=== PATIENT | male | born 1960 | race African-American/Black ===

== ENCOUNTER 2017-01-20 13:06 | Emergency (ER) | payer MEDICARE, OTHER ==
[~2017-01-20 13:06] MED LIST: DENIES HOME MEDS
== END 2017-01-20 13:51 | disposition home or self-care (01) ==
LOC: ER 13:06
DX: G89.29 Other chronic pain (principal); M54.2 Cervicalgia; F31.9 Bipolar disorder, unspecified; F41.9 Anxiety disorder, unspecified; E78.5 Hyperlipidemia, unspecified; F17.200 Nicotine dependence, unspecified, uncomplicated; Z88.6 Allergy status to analgesic agent
CPT/HCPCS: 99283